=== PATIENT | female | born 1995 | race Caucasian/White ===

== ENCOUNTER 2017-05-08 21:59 | Inpatient (IN) | payer OTHER ==
[2017-05-08] MEDS ORDERED: DEXTROSE 5%-LACTATED RINGERS 1,000 ML IV SCH (22:00)
[2017-05-08] MEDS ORDERED: AMPICILLIN 2 GM/100 ML BAG (PRE-DOCKED) IVPB ONE (23:00)
[2017-05-08 23:33] LABS: BASOPHIL 0.3 % (0-2.0); EOSINOPHIL 0.2 % (0-4.5); MCH 26.1 pg (25.7-33.7); MCHC 32.1 g/dl (32.0-36.0); MEAN CELL VOLUME 81.2 fl (80-96); MEAN PLT VOLUME 9.9 fl (7.5-11.1); NEUTROPHILS 83.1 % (42.8-82.8); PLATELET COUNT 247 K/MM3 (134-434); RDW 13.7 % (11.6-15.6); WHITE BLOOD COUNT 14.1 K/mm3 (4.0-10.0)
[2017-05-08 23:50] VITALS: BMI 24.1
[2017-05-09 00:11] LABS: INR 0.96 (0.82-1.09); PROTHROMBIN TIME (PATIENT) 10.6 SEC (9.98-11.88)
[2017-05-09 00:14] LABS: ACTIVATED PTT 29.6 SECONDS (26.9-34.4)
[2017-05-09 02:18] LABS: ANION GAP 10 (8-16); CALCIUM 8.8 mg/dL (8.5-10.1); CO2 25 mmol/L (21-32); CREATININE 0.5 mg/dL (0.55-1.02); GLUCOSE,RANDOM 105 mg/dL (74-106)
[2017-05-09] MEDS: AMPICILLIN (PRE-DOCKED) 1 GM/100 ML BAG IVPB SCH ×3 (03:00→11:00)
[2017-05-09] MEDS ORDERED: PROMETHAZINE HCL 25 MG/1 ML VIAL IVPUSH ONE (09:13)
[2017-05-09] MEDS ORDERED: BUTORPHANOL TARTRATE 1 MG/ML VIAL IVPUSH ONE (09:13)
[2017-05-09] MEDS ORDERED: OXYTOCIN 15 UNITS/ LR 250 ML 250 ML IVPB SCH (09:15)
--- NOTE | 2017-05-09 09:16 | PN ---
Progress Note (short form) - Note Progress Note: cx 1 cm 75 vx -2 mr, clear, fhr cat 1 irregular contraction , pitocin rba discussed , agreed
--- NOTE | 2017-05-09 09:21 | HP ---
Past Medical History - Primary Care Physician PCP:: Mateus Clark - Admission Chief Complaint: 38.6 weeks, rom, early labor History of Present Illness: 22 yo f edc by sono 05/18/17 c/o ROM since 913 pm 05/08/17, clear fluid , has mild cramps, no fever,no bleeding History Source: Patient Limitations to Obtaining History: No Limitations - Past Medical History ...: 2 ...Para: 0 ...Term: 0 ...: 0 ...Spon : 0 ...Induced : 1 ...Multiple Gestation: 0 ...LMP: 07/23/16 ... Weeks Gestation by Dates: 41.2 ...EDC by Dates: 04/29/17 ...EDC by Sono: 05/18/17 - Past Surgical History Hx Myomectomy: No Hx Transabdominal Cerclage: No - Smoking History Smoking history: Never smoked Have you smoked in the past 12 months: No Aproximately how many cigarettes per day: 1 - Alcohol/Substance Use Hx Alcohol Use: No - Social History History of Recent Travel: No Home Medications - Allergies Allergies/Adverse Reactions: Allergies Allergy/AdvReac Type Severity Reaction Status Date / Time No Known Allergies Allergy Verified 05/09/17 00:39 - Home Medications Home Medications: Ambulatory Orders Ferrous Gluconate [Iron] 256 mg PO DAILY 04/30/17 [id number]/Iron Fumarate/FA/Dss [ 19 Tablet] 1 each PO DAILY 04/30/17 Review of Systems - Review of Systems Constitutional: reports: No Symptoms Eyes: reports: No Symptoms HENT: reports: No Symptoms Neck: reports: No Symptoms Cardiovascular: reports: No Symptoms Respiratory: reports: No Symptoms Gastrointestinal: reports: No Symptoms Genitourinary: reports: No Symptoms Breasts: reports: No Symptoms Reported Musculoskeletal: reports: No Symptoms Integumentary: reports: No Symptoms Neurological: reports: No Symptoms Endocrine: reports: No Symptoms Hematology/Lymphatic: reports: No Symptoms Psychiatric: reports: No Symptoms Physical Exam - Maternity Vital Signs: Vital Signs Temperature 98.2 F 05/09/17 08:00 Pulse Rate 56 L 05/09/17 08:00 Respiratory Rate 20 05/09/17 08:00 Blood Pressure 124/88 05/09/17 08:00 O2 Sat by Pulse Oximetry (%) Constitutional: Yes: Well Nourished, No Distress, Calm Eyes: Yes: WNL, Conjunctiva Clear, EOM Intact HENT: Yes: WNL, Atraumatic, Normocephalic Neck: Yes: WNL, Supple, Trachea Midline Cardiovascular: Yes: WNL, Regular Rate and Rhythm Breast(s): Yes: WNL - Abdominal Exam/OB Fundal Height: 38 Number of Fetuses: Single Presentation: Vertex Contractions: Yes Regularity: Irregular Intensity: Moderate Monitor Mode: External Heart Rate Location: [facility] Category: I Accelerations: Uniform Decelerations: None - Vaginal Exam/OB Vaginal Bleediing: No Speculum Exam: No Dilatation (cm): 1 cm Effacement (%): 75 Amniotic Membrane Status: Ruptured Nitrazine Test: Positive Amniotic Fluid: Yes: Clear Presentation: Vertex/Position Station: -2 - Physical Exam Edema: Yes Edema: LLE: Trace, RLE: Trace Deep Tendon Reflex Grade: Normal +2 Psychiatric: Yes: WNL - Labs Lab Results: CBC, BMP 05/08/17 22:45 05/08/17 22:45 Hemorrhage Risk Assessment - Risk Factors Risk Score: 0 Risk Level: Low Risk Problem List - Problems (1) with 38 completed weeks gestation Code(s): Z3A.38 - 38 WEEKS GESTATION OF (2) membrane rupture Code(s): YIT1181 - Assessment/Plan plan admit, observation, if no labor pitocin , cont FHM
[2017-05-09] MEDS ORDERED: IBUPROFEN 600 MG TABLET (FP) PO PRN (13:32)
[2017-05-09] MEDS ORDERED: ACETAMINOPHEN 325 MG TABLET (FP) PO PRN (13:32)
[2017-05-09] MEDS ORDERED: BENZOCAINE 20% 57 GM BOTTLE TP PRN (13:32)
[2017-05-09] MEDS ORDERED: WITCH HAZEL 50% (TUCKS) 40 PAD/JAR PAD TP PRN (13:32)
[2017-05-09] MEDS ORDERED: BENZOCAINE 28 GM HEMORRHOIDAL OINTMENT TP PRN (13:32)
[2017-05-09] MEDS ORDERED: METHYLERGONOVINE MALEATE 0.2 MG/1 ML AMP IM PRN (13:32)
[2017-05-09] MEDS ORDERED: BISACODYL 10 MG SUPP.RECT RC PRN (13:32)
[2017-05-09] MEDS ORDERED: D5W-LR W/ 20 UNITS OXYTOCIN 1,000 ML IV SCH (13:45)
[2017-05-09] MEDS: FERROUS SO4 325 MG TABLET (FP) PO SCH (21:44)
--- NOTE | 2017-05-10 08:05 | PN ---
Post Progress Note - Subjective Subjective: 22 yo Para 1, status post vaginal delivery, seen and evaluated. Doing well, no complaints. Post Day: 1 Type of Delivery: Vital Signs: Vital Signs Temperature 98.2 F 05/10/17 06:00 Pulse Rate 86 05/10/17 06:00 Respiratory Rate 18 05/10/17 06:00 Blood Pressure 129/79 05/10/17 06:00 O2 Sat by Pulse Oximetry (%) Breast Exam: Yes: Soft Uterus: Yes: Fundus Firm Abdomen/GI: Yes: Abdomen soft, Tolerating PO Lochia: Yes: Rubra Lochia, amount: Moderate Extremities: Yes: Calves non-tender Activity: Ambulating - Labs Labs: CBC WBC 14.1 K/mm3 (4.0-10.0) H D 05/08/17 22:45 RBC 4.38 M/mm3 (3.60-5.2) 05/08/17 22:45 Hgb 11.4 GM/dL (10.7-15.3) D 05/08/17 22:45 Hct 35.6 % (32.4-45.2) 05/08/17 22:45 MCV 81.2 fl (80-96) 05/08/17 22:45 MCH 26.1 pg (25.7-33.7) 05/08/17 22:45 MCHC 32.1 g/dl (32.0-36.0) 05/08/17 22:45 RDW 13.7 % (11.6-15.6) 05/08/17 22:45 Plt Count 247 K/MM3 (134-434) D 05/08/17 22:45 MPV 9.9 fl (7.5-11.1) 05/08/17 22:45 Neutrophils % 83.1 % (42.8-82.8) H D 05/08/17 22:45 Lymphocytes % 11.8 % (8-40) D 05/08/17 22:45 Monocytes % 4.6 % (3.8-10.2) 05/08/17 22:45 Eosinophils % 0.2 % (0-4.5) D 05/08/17 22:45 Basophils % 0.3 % (0-2.0) 05/08/17 22:45 Assessment/Plan Status post Stable Continue routine care
[2017-05-10 08:13] LABS: BASOPHIL 0.4 % (0-2.0); EOSINOPHIL 0.7 % (0-4.5); MCH 26.6 pg (25.7-33.7); MCHC 32.1 g/dl (32.0-36.0); MEAN CELL VOLUME 82.9 fl (80-96); MEAN PLT VOLUME 9.4 fl (7.5-11.1); NEUTROPHILS 73.4 % (42.8-82.8); PLATELET COUNT 209 K/MM3 (134-434); RDW 14.1 % (11.6-15.6); WHITE BLOOD COUNT 18.3 K/mm3 (4.0-10.0)
[2017-05-10] MEDS: PRENATAL VITAMINS W/ FOLIC ACID TABLET (FP) PO SCH (09:18)
[2017-05-10] MEDS: FERROUS SO4 325 MG TABLET (FP) PO SCH ×2 (09:18→21:04)
[2017-05-10] MEDS ORDERED: SENNOSIDES/DOCUSATE COMBO (SENNA PLUS) TABLET (UD) PO PRN (22:00)
--- NOTE | 2017-05-11 07:12 | DS ---
Physical Exam-IP LITIGATION [place] Vital Signs: Vital Signs Temperature 97.7 F 05/10/17 22:00 Pulse Rate 68 05/10/17 22:00 Respiratory Rate 18 05/10/17 22:00 Blood Pressure 130/86 05/10/17 22:00 O2 Sat by Pulse Oximetry (%) Constitutional: Yes: Well Nourished, No Distress, Calm Eyes: Yes: WNL, Conjunctiva Clear, EOM Intact HENT: Yes: WNL, Atraumatic, Normocephalic Neck: Yes: WNL, Supple, Trachea Midline Cardiovascular: Yes: WNL, Regular Rate and Rhythm Respiratory: Yes: WNL, Regular, CTA Bilaterally Gastrointestinal: Yes: WNL ...Rectal Exam: Yes: WNL Renal/: Yes: WNL ....Post : Yes: Uterus firm, Uterus non-tender, Slight lochia rubra Breast(s): Yes: WNL Musculoskeletal: Yes: WNL Extremities: Yes: WNL Edema: No Integumentary: Yes: WNL Neurological: Yes: WNL, Alert, Oriented ...Motor Strength: WNL Psychiatric: Yes: WNL, Alert, Oriented Labs: CBC, BMP 05/10/17 07:30 05/08/17 22:45 Delivery - Delivery Vaginal Delivery: Spontaneous (no complication) Type of Anesthesia: None Episiotomy/Laceration: None EBL (cc): 350 Delivery, Single - Stages of Labor Date 1st Stage Initiatied: 05/09/17 Time 1st Stage Initiated: 07:00 Date 2nd Stage Initiated: 05/09/17 Time 2nd Stage Initiated: 13:15 Date of Delivery: 05/09/17 Time of Delivery: 13:35 Time Placenta Delivered: 13:40 Placenta: Yes: Spontaneous - Condition of Infant Pharmacy Assistant/Diesel Stationary Engineer Present: No Gender: Male Weight: 6 lb 6 oz Position: Left, OA Total Hours ROM (Hrs/Mins): 16H40M - 1 Minute Total Score: 9 5 Minutes Total Score: 10 - [place] Feeding Plan Initial Plan: Elected not to breastfeed exclusively throughout hospitalization Discharge Summary Reason For Visit: ADMIT ROM Current Active Problems membrane rupture (Acute) with 38 completed weeks gestation (Acute) Status post normal delivery (Acute) Procedures: Principal: Hospital Course: unevenful Condition: Good - Instructions Diet, Activity, Other Instructions: regular dist, follow up [facility] care 4 weeks Referrals: Mateus Clark MD [Staff Physician] - Disposition: HOME - Home Medications Comprehensive Discharge Medication List: Ambulatory Orders Ferrous Gluconate [Iron] 256 mg PO DAILY 04/30/17 [id number]/Iron Fumarate/FA/Dss [ 19 Tablet] 1 each PO DAILY 04/30/17 Ibuprofen [Motrin -] 600 mg PO QID #28 tablet 05/10/17
[2017-05-11] MEDS: FERROUS SO4 325 MG TABLET (FP) PO SCH (09:21)
[2017-05-11] MEDS: PRENATAL VITAMINS W/ FOLIC ACID TABLET (FP) PO SCH (09:21)
[2017-05-11 10:22] VITALS: BP 138/87; PULSE 69; TEMP 99
== END 2017-05-11 12:30 | disposition home or self-care (01) | DRG 560 ==
LOC: JLDR 21:59 → J3W 05-09 14:49
PROVIDERS: ADMIT Obstetrics & Gynecology; ATTEND Obstetrics & Gynecology
PROC: 10E0XZZ Delivery of Products of Conception, External Approach (ICD-10-PCS; principal; 2017-05-09)
DX: O80 Encounter for full-term uncomplicated delivery (principal); Z3A.38 38 weeks gestation of pregnancy; Z37.0 Single live birth
CPT/HCPCS: 36415; 59409; 80048; 85025; 85610; 85730; 86593; 86850; 86900; 86901

== ENCOUNTER 2018-08-21 09:57 | Emergency (ER) | payer OTHER ==
[2018-08-21 10:11] VITALS: BP 131/96; PULSE 65; TEMP 98.4; BMI 23.2
[2018-08-21] MEDS ORDERED: KETOROLAC TROMETHAMINE 30 MG/1 ML VIAL IM ONE (11:27)
--- NOTE | 2018-08-21 11:27 | PDOC ---
History of Present Illness - General Chief Complaint: Pain Stated Complaint: CRAMPS Time Seen by Provider: 08/21/18 10:46 History Source: Patient Exam Limitations: No Limitations - History of Present Illness Initial Comments: 08/21/18 11:48 Patient is a 23-year-old female who presents to the emergency department today for left-sided back pain. Patient states she banged her left side into a table yesterday while trying to prevent her son from falling. She states that since then the pain wraps around to her front abdomen. Denies fevers, chills, pain with urination, etc. anesthesia, bladder bowel incontinence, numbness and weakness to the extremities. Past History - Travel Traveled outside of the country in the last 30 days: No Close contact w/someone who was outside of country & ill: No - Past Medical History Allergies/Adverse Reactions: Allergies Allergy/AdvReac Type Severity Reaction Status Date / Time No Known Allergies Allergy Verified 08/21/18 10:06 Home Medications: Ambulatory Orders Cephalexin Monohydrate [Keflex -] 500 mg PO BID #14 capsule 08/21/18 Ibuprofen 800 mg PO TID #30 tablet 08/21/18 Asthma: No Cancer: No Cardiac Disorders: No COPD: No Diabetes: No HTN: No Seizures: No Thyroid Disease: No - Suicide/Smoking/Psychosocial Hx Smoking History: Current every day smoker Have you smoked in the past 12 months: Yes Number of Cigarettes Smoked Daily: 1 Information on smoking cessation initiated: Yes Hx Alcohol Use: No Drug/Substance Use Hx: No Substance Use Type: None Hx Substance Use Treatment: No Review of Systems - Review of Systems Able to Perform ROS?: Yes Comments:: 08/21/18 11:26 CONSTITUTIONAL: Absent: fever, chills, diaphoresis, generalized weakness, malaise, loss of appetite GASTROINTESTINAL: Absent: abdominal pain, abdominal distension, nausea, vomiting, diarrhea, constipation, melena, hematochezia GENITOURINARY: Absent: dysuria, frequency, urgency, hesitancy, hematuria, flank pain, genital pain MUSCULOSKELETAL: Present: low back pain Absent: arthralgia, joint swelling SKIN: Absent: rash, itching, pallor NEUROLOGIC: Absent: headache, focal weakness or paresthesias, dizziness, unsteady gait, seizure, mental status changes, bladder or bowel incontinence PSYCHIATRIC: Absent: anxiety, depression, suicidal or homicidal ideation, hallucinations. Is the patient limited [place]er proficient: No *Physical Exam - Vital Signs Last Vital Signs Temp Pulse Resp BP Pulse Ox 98.4 F 65 16 131/96 100 08/21/18 10:06 08/21/18 10:06 08/21/18 10:06 08/21/18 10:06 08/21/18 10:06 - Physical Exam Comments: 08/21/18 11:26 GENERAL: Well developed, well nourished. Awake and alert. No acute distress. NECK: Supple. Full ROM. No JVD. Carotid pulses 2+ and symmetric, without bruits. No thyromegaly. No lymphadenopathy. MUSCULOSKELETAL TTP of the L paraspinous muscles from L3-L5 with palpable knot. (-) straight leg raise testing. Normal range of motion at all joints. No bony deformities or tenderness. No CVA tenderness. EXTREMITIES: No cyanosis. No clubbing. No edema. No calf tenderness. SKIN: Warm and dry. Normal capillary refill. No rashes. No jaundice. NEUROLOGICAL: Alert, awake, appropriate. Cranial nerves 2-12 intact. No deficits to light touch and temperature in face, upper extremities and lower extremities. No motor deficits in the in face, upper extremities and lower extremities. Normoreflexic in the upper and lower extremities. Normal speech. Toes are down- going bilaterally. Gait is normal without ataxia. PSYCHIATRIC: Cooperative. Good eye contact. Appropriate mood and affect. Medical Decision Making - Medical Decision Making 08/21/18 11:45 Pt is a 23 y/o F who presents with one day of low back pain s/p hitting her back on a table. -Pt with TTP of the L paraspinous muscles, L3-L5, with palpable knot consistent with muscle spasm. -No fever. No saddle anesthesia or bladder/bowel incontinence. No CVA tenderness. -Pt is neurologically intact on exam with no focal findings. -Toradol given with relief of symptoms -DC home. Ortho follow up given for if symptoms do not resolve. -I discussed the physical exam findings, ancillary test results and final diagnoses with the patient. I answered all of the patient's questions. The patient was satisfied with the care received and felt comfortable with the discharge plan and treatment plan. The Patient agrees to follow up with the primary care physician/specialist within 24-72 hours. Return precautions were given. *DC/Admit/Observation/Transfer Diagnosis at time of Disposition: Low back pain Qualifiers: Chronicity: acute Back pain laterality: left Sciatica presence: without sciatica Qualified Code(s): M54.5 - Low back pain - Discharge Dispostion Disposition: HOME Condition at time of disposition: Stable Decision to Admit order: No - Prescriptions Prescriptions: Cephalexin Monohydrate [Keflex -] 500 mg PO BID #14 capsule Ibuprofen 800 mg PO TID #30 tablet - Referrals Referrals: Mohan Mireles MD [Staff Physician] - - Patient Instructions Printed Discharge Instructions: DI for Low Back Pain Additional Instructions: You have low back pain due to a muscle spasm. Please take ibuprofen 800 mg 3 times a day not to exceed 3000 mg a day. You were also prescribed Flexeril. Please take the medication before you go to bed. Do not drive after taking this medication as it may make you sleepy. You may use warm compresses on your back to help with her symptoms. Please follow-up with your primary care doctor. If your symptoms do not resolve in 3-5 days, follow-up with orthopedics. A referral has been provided for you. Return to the emergency department if you have worsening back pain, bladder or bowel incontinence, numbness and tingling in her legs, changes in the way you walk, or any new or worsening symptoms. - Post Discharge Activity Forms/Work/School Notes: Back to Work, Back to School
[2018-08-21] MEDS ORDERED: KETOROLAC TROMETHAMINE 30 MG/1 ML VIAL ONE (11:35)
== END 2018-08-21 12:01 | disposition home or self-care (01) ==
LOC: JERFT 09:57
PROC: 3E0233Z Introduction of Anti-inflammatory into Muscle, Percutaneous Approach (ICD-10-PCS; principal; 2018-08-21)
DX: M54.5 Low back pain (principal); F17.210 Nicotine dependence, cigarettes, uncomplicated; X58.XXXA Exposure to other specified factors, initial encounter; Y93.89 Activity, other specified; Y92.9 Unspecified place or not applicable
CPT/HCPCS: 96372; 99281-25

== ENCOUNTER 2019-05-20 00:03 | Emergency (ER) | payer OTHER | END 2019-05-20 03:00 | disposition home or self-care (01) | LOC: JER 00:03 ==